=== PATIENT | male | born 1980 ===

== ENCOUNTER 2025-07-27 10:15 | Inpatient (IN) | payer OTHER ==
[~2025-07-27] VITALS: Ht 180.3 cm; Wt 109.3 kg
[2025-07-27 11:03] LABS: URINE APPEARANCE Clear; URINE BILIRRUBIN Negative (NEGATIVE); URINE BLOOD Negative; URINE COLOR Yellow; URINE GLUCOSE Negative (NEGATIVE); URINE KETONE Negative (NEGATIVE); URINE LEUKOCYTE Negative; URINE NITRATE Negative; URINE PROTEIN Negative (NEGATIVE); URINE UROBILINOGEN 0.2 E.U./dl
[2025-07-27 11:09] LABS: BASO % 0.4 % (0.1-1.2); EOS # 0.08 (0.04-0.54); EOS % 0.9 % (0.7-7.0); LYMPH # 2.13 (1.18-3.74); LYMPH % 24.9 % (19.3-53.1); MEAN PLATELET VOLUME 10.70 fl (9.4-12.4); MONO # 0.52 (0.24-0.82); MONO % 6.1 % (4.7-12.5); NEUT # 5.76 (1.56-6.13); NEUT % 67.5 % (34.0-71.1); RED CELL DISTRIBUTION WIDTH 15.0 % (11.6-14.4)
[2025-07-27 11:09] LABS: URINE BACTERIA 14.3 uL (0.0-1933); URINE EPITHELIAL CELLS 2.2 uL (0.0-38.8); URINE RBC 2.3 uL (0.0-20.8); URINE WBC 1.8 uL (0.0-23.2)
[2025-07-27 11:20] LABS: COVID-19 AG NEGATIVE (NEGATIVE)
[2025-07-27 11:21] LABS: URINE CAST 0.00 uL (0.0-1.40)
[2025-07-27 11:47] VITALS: BP 123/82
[2025-07-27 11:48] LABS: INR 0.99
[2025-07-27 12:02] LABS: ALT/SGPT 70.0 U/L (12-78); AST/SGOT 34.0 U/L (15-37); BILIRUBIN TOTAL 0.58 mg/dL (0.3-1.2); BUN CREA RATIO 17.0 (7.0-25.0); CREATININE SERUM 0.76 mg/dL (0.70-1.30); GFR 110.42; GLOBULINA 3.4 G/DL (2.4-3.5); GLUCOSE FASTING 84.0 mg/dL (65-100); OSMOLALITY SERUM 282.0 MOSM/KG (275-295)
[2025-08-01] MEDS ORDERED: CEFAZOLIN SODIUM 1,000 MG VIAL ONE (10:56)
[2025-08-01] MEDS ORDERED: TRANEXAMIC ACID 100MG/1ML (1000MG) AMPUL ONE (10:56)
[2025-08-01] MEDS ORDERED: ISOPROPYL ALCOHOL 30 ML OUNCE TOP ONE (12:09)
[2025-08-01] MEDS ORDERED: BUPIVACAINE HCL/MPF 0.5% 30ML VIAL ONE (12:12)
[2025-08-01] MEDS ORDERED: LIDOCAINE HCL 1%/EPINEPHRINE 20ML VIAL IJ ONE (12:12)
[2025-08-01] MEDS ORDERED: KETOROLAC TROMETHAMINE 60 MG VIAL IM ONE (12:12)
[2025-08-01] MEDS ORDERED: VANCOMYCIN HCL 1,000 MG VIAL ONE (12:13)
[2025-08-01] MEDS ORDERED: hydrALAZINE HCL 20 MG VIAL ONE (14:43)
[2025-08-01] MEDS ORDERED: SUGAMMADEX SODIUM 200 MG/2 ML VIAL IV ONE (16:15)
[2025-08-01] MEDS ORDERED: SODIUM CHLORIDE 0.45 % 1,000 ML IV SCH (20:00)
[2025-08-01] MEDS ORDERED: MORPHINE SULFATE 4 MG/ML CARTRIDGE IV PRN (20:00)
[2025-08-01] MEDS ORDERED: OxyCODONE HCL 5 MG TABLET (ROXICODONE) PO PRN (20:00)
[2025-08-01] MEDS ORDERED: ONDANSETRON HCL 2 MG/ML VIAL IV PRN (20:00)
[2025-08-02] MEDS ORDERED: ACETAMINOPHEN 500 MG GEL..CAP PO SCH
[2025-08-02] MEDS ORDERED: CEFAZOLIN SODIUM 1,000 MG VIAL IV SCH (01:00)
[2025-08-02] MEDS ORDERED: GABAPENTIN 300 MG CAPSULE PO SCH (01:00)
[2025-08-02 06:26] LABS: BASO % 0.2 % (0.1-1.2); EOS # 0.03 (0.04-0.54); EOS % 0.4 % (0.7-7.0); LYMPH # 2.14 (1.18-3.74); LYMPH % 26.2 % (19.3-53.1); MEAN PLATELET VOLUME 11.50 fl (9.4-12.4); MONO # 0.88 (0.24-0.82); MONO % 10.8 % (4.7-12.5); NEUT # 5.07 (1.56-6.13); NEUT % 62.0 % (34.0-71.1); RED CELL DISTRIBUTION WIDTH 14.7 % (11.6-14.4)
[2025-08-02] MEDS ORDERED: GABAPENTIN 300 MG CAPSULE PO ONE (08:12)
[2025-08-02] MEDS ORDERED: CEFAZOLIN SODIUM 1,000 MG VIAL ONE ×2 (08:12→15:40)
[2025-08-02] MEDS ORDERED: DUI500 PO ×2 (08:46)
[2025-08-02] MEDS ORDERED: ELIQUIS2.5 MG PO ×2 (08:46)
[2025-08-02] MEDS ORDERED: PERCOCET 5-3251 EACH PO ×2 (08:46)
[2025-08-02] MEDS ORDERED: SENNOSIDES 1 TAB TABLET PO SCH (09:00)
[2025-08-02] MEDS ORDERED: APIXABAN 2.5 MG TABLET PO SCH (09:00)
[2025-08-02] MEDS ORDERED: Cyanocobalamin/Mecobalamin 1 TAB.SL SL NR (16:15)
[2025-08-02] MEDS ORDERED: SOD FERRIC GLUC COMPLX/SUCROSE 62.5 MG/5 ML AMPUL IV SCH (17:00)
[2025-08-02 19:37] VITALS: BP 109/74; O2SAT 95
[2025-08-03 01:33] VITALS: BP 104/66; O2SAT 98
[2025-08-03 06:55] LABS: BASO % 0.3 % (0.1-1.2); EOS # 0.01 (0.04-0.54); EOS % 0.1 % (0.7-7.0); LYMPH # 1.56 (1.18-3.74); LYMPH % 13.8 % (19.3-53.1); MEAN PLATELET VOLUME 11.50 fl (9.4-12.4); MONO # 1.47 (0.24-0.82); NEUT # 8.23 (1.56-6.13); NEUT % 72.4 % (34.0-71.1); RED CELL DISTRIBUTION WIDTH 14.4 % (11.6-14.4)
[2025-08-03 06:58] LABS: MONO % 13.0 % (4.7-12.5)
[2025-08-03] MEDS ORDERED: Cyanocobalamin/Mecobalamin 1 TAB.SL SL SCH (09:00)
[2025-08-03] MEDS ORDERED: IRON FUM,PS/FOLIC ACID/VITC/B3 1 CAP CAPSULE PO SCH (09:00)
[2025-08-03 11:15] VITALS: BP 111/81; O2SAT 95
[2025-08-03 16:00] VITALS: BP 109/52; O2SAT 99
== END 2025-08-03 18:23 | disposition home or self-care (01) | DRG 481 ==
LOC: O/R 08-01 10:00 → SURH 08-01 10:00
PROVIDERS: ADMIT Orthopaedic Surgery; ATTEND Orthopaedic Surgery
PROC: 0MBM0ZZ Excision of Left Hip Bursa and Ligament, Open Approach (ICD-10-PCS; 2025-08-01)
PROC: 0SRB06Z Replacement of Left Hip Joint with Oxidized Zirconium on Polyethylene Synthetic Substitute, Open Approach (ICD-10-PCS; 2025-08-01)
PROC: 0QU70JZ Supplement Left Upper Femur with Synthetic Substitute, Open Approach (ICD-10-PCS; principal; 2025-08-01 10:00)
DX: M16.12 Unilateral primary osteoarthritis, left hip (principal); D62 Acute posthemorrhagic anemia

== ENCOUNTER → 2025-08-03 | Emergency (ER) | payer OTHER ==
[~2025-08-03] VITALS: Ht 180.3 cm; Wt 107.5 kg
[~2025-08-03] MED LIST: DUI500 PO; ELIQUIS2.5 MG PO; KETOROLAC TROMETHAMINE 30 MG VIAL IM STA; KETOROLAC TROMETHAMINE 30 MG VIAL ONE; METOPROLOL SUCCINATE 25 MG TAB.SR.24H PO STA; PERCOCET 5-3251 EACH PO
[2025-08-03 22:10] LABS: BASO % 0.3 % (0.1-1.2); EOS # 0.04 (0.04-0.54); EOS % 0.3 % (0.7-7.0); LYMPH # 2.16 (1.18-3.74); LYMPH % 18.2 % (19.3-53.1); MEAN PLATELET VOLUME 11.20 fl (9.4-12.4); MONO # 1.39 (0.24-0.82); MONO % 11.7 % (4.7-12.5); NEUT # 8.18 (1.56-6.13); NEUT % 69.2 % (34.0-71.1); RED CELL DISTRIBUTION WIDTH 13.8 % (11.6-14.4)
[2025-08-03 22:52] LABS: ALT/SGPT 71.0 U/L (12-78); AST/SGOT 40.0 U/L (15-37); BILIRUBIN TOTAL 0.66 mg/dL (0.3-1.2); BUN CREA RATIO 18.0 (7.0-25.0); CKMB 1.1 NG/ML (0.5-3.6); CREATININE SERUM 0.74 mg/dL (0.70-1.30); GFR 113.87; GLOBULINA 4.1 G/DL (2.4-3.5); GLUCOSE FASTING 128.0 mg/dL (65-100); OSMOLALITY SERUM 274.0 MOSM/KG (275-295)
[2025-08-03 23:44] LABS: URINE APPEARANCE Clear; URINE BILIRRUBIN Small (NEGATIVE); URINE BLOOD Moderate; URINE COLOR Dark Yellow; URINE GLUCOSE Negative (NEGATIVE); URINE LEUKOCYTE Trace; URINE NITRATE Negative; URINE UROBILINOGEN 1.0 E.U./dl
[2025-08-03 23:48] LABS: URINE BACTERIA 17.9 uL (0.0-1933); URINE EPITHELIAL CELLS 5.0 uL (0.0-38.8); URINE RBC 20.9 uL (0.0-20.8); URINE WBC 3.8 uL (0.0-23.2)
[2025-08-03 23:50] LABS: URINE CAST 0.43 uL (0.0-1.40); URINE KETONE 40 (NEGATIVE); URINE PROTEIN 100 (NEGATIVE)
== END | disposition home or self-care (01) ==
LOC: ER 20:02
PROVIDERS: Physician Assistant Medical
DX: R00.0 Tachycardia, unspecified (principal); Z96.642 Presence of left artificial hip joint